=== PATIENT | female | born 1945 | race Caucasian/White ===

== ENCOUNTER 2017-01-17 18:45 | Inpatient (IN) | payer MEDICARE, OTHER ==
[~2017-01-17] VITALS: Ht 147.3 cm; Wt 75.5 kg
[~2017-01-17 18:45] MED LIST: ACYC400T2 PO; BUPR100T15 PO; CALC600T12 PO; CHOL100045 PO; CITA20TA11 PO; ESTR42.52 VG; IBUP800T28 PO; LAMO200T2 PO; LEVO50TA6 PO; MAGN100T5 PO; OMEG100T PO; PRAM0.252 PO; ZIPR40CA24 PO
[2017-01-17 18:57] VITALS: BP 162/81; PULSE 91; RESP 18; O2SAT 94
[2017-01-17] MEDS ORDERED: Ondansetron 2 mg/mL 2 mL Inj IVPUSH ONE (19:25)
[2017-01-17] MEDS ORDERED: 0.9% Sodium Chloride 1,000 ML IV ONE ×2 (19:25→22:35)
[2017-01-17] MEDS ORDERED: Ketorolac 15 mg/mL Inj IVPUSH ONE (19:25)
[2017-01-17 19:31] LABS: BASOPHILS % (AUTO) 0.1 % (0-3); EOSINOPHILS % (AUTO) 1.8 % (0-5); MONOCYTES % (AUTO) 5.6 % (4-12); Mean Corpuscular Volume 95.9 fL (81-100); NEUTROPHILS % (AUTO) 87.2 % (40-74); Platelet Count 205 bil/L (150-400)
--- NOTE | 2017-01-17 19:32 | ED.REPORT ---
HPI-General Illness Date of Service Jan 17, 2017 ED Provider: Elis Lord MD Patient is a 71 year old female who presents to the ED complaining of a fever onset 3 days ago. Associated symptoms include headache, nausea and decreased urination. She denies photophobia, confusion, weakness, numbness, vomiting, rhinorrhea, sore throat, dysuria, urinary frequency or diarrhea. The patient reports that she felt better yesterday but then her symptoms returned this morning. She states that eating doesn't effect her nausea. The patient was seen earlier today at where she was given Tylenol and referred to the ED. She was also seen at [facility] two days ago due to experiencing some vaginal bleeding. At that time she had an ultrasound, which showed that her uterine lining is thickened. Nursing Notes Stated Complaint: SENT FROM FOR TESTING Chief Complaint: General Complaint Nursing Notes Reviewed: Yes Allergies: Coded Allergies: Sulfa (Sulfonamide Antibiotics) (Verified Allergy, Unknown, 03/04/15) Scheduled Acyclovir (Acyclovir) 400 Mg Tablet 400 MG PO BID Cholecalciferol (Vitamin D3) (Vitamin D) 1,000 Unit Capsule 2,000 UNIT PO DAILY Citalopram (Citalopram) 20 Mg Tablet 20 MG PO DAILY Estradiol (Estrace) 42.5 Gm Cream.appl 1 G VG UD Lamotrigine (Lamotrigine) 200 Mg Tablet 200 MG PO DAILY Levothyroxine (Levothyroxine) 50 Mcg Tablet 50 MCG PO DAILY Ziprasidone (Ziprasidone) 40 Mg Capsule 40 MG PO BID Scheduled PRN Ibuprofen (Ibuprofen) 800 Mg Tablet 800 MG PO TID PRN PRN For Pain Miscellaneous Medications Calcium Carbonate (Calcium) 600 Mg Tablet 600 MG PO Magnesium Amino Acid Chelate (Magnesium) 100 Mg Tablet 100 MG PO King[place]-3 Fatty Acids (Kingman-3) 100 Mg Tab.chew 350 MG PO General Time Seen by MD: 19:02 Chief Complaint Fever Hx Obtained From: Patient Arrived By: Walk-in Sudden in Onset?: Yes Onset Occurred: 3 days ago Symptom Duration: Intermittent Location: : Head Quality: Painful Radiation: : Does not radiate Severity: Current: Moderate Recent Healthcare: Recent doctor visit Similar Sx Previous: No Past Medical History Past Medical History bipolar disorder CECILIA restless leg syndrome osteopenia hypothyroidism depression Reports: Hypertension Past Surgical History Reports: Reports: Tubal ligation Smoking History Never Smoker Social History Other Social History: Good social support, Ambulatory Status Independent Review of Systems Full Review of Systems Constitutional: Reports: Fever, Denies: Chills Eyes: Denies: Photophobia Ears / Nose / Throat: Denies: Sore throat Respiratory: Denies: Non-productive cough, Shortness of breath GI: Reports: Nausea, Denies: Diarrhea, Vomiting Female: Reports: Urination decreased, Denies: Dysuria, Urinary frequency Skin: Denies Itching, Denies Rash Allergy / Immune: Denies: Rhinorrhea Neurologic: Reports: Headache, Denies: Numbness, Weakness Complete sys rev & neg: except as marked. Physical Exam Vital Signs Vital Signs Date Time Temp Pulse Resp B/P Pulse Ox O2 Delivery O2 Flow Rate FiO2 01/17/17 18:57 38.2 91 18 162/81 94 Room Air Initial VS: Reviewed General/Constitutional: Awake, Alert Head / Eyes: Atraumatic, Normocephalic, PERRL, EOMI ENT: Atraumatic, Airway patent, Mucous membranes moist Neck: Atraumatic, Supple, Full range of motion Respiratory / Chest: Atraumatic, Breath sounds NL, Breath sounds = bilat, No respiratory distress Cardiovascular: Heart rate NL, Regular rhythm, Heart sounds NL Abdomen: Atraumatic, Soft Tenderness/Guarding/Rebound: Positive: Tender RUQ... (with guarding) Back: Atraumatic, No CVA tenderness Lower Extremity / Pelvis / MS: Atraumatic, No edema Skin: Atraumatic, Color NL, No rash, Warm, Dry Neurologic: Oriented X3, Speech NL, No motor deficits, No sensory deficits, CN II - XII intact Psychiatric: Affect NL, Mood NL Interpretation & Diagnostics Interpretation & Diagnostics: bedside ultrasound: gallbladder wall at 1.5cm, 1 gallstone, positive sonographic James's sign ABDOMEN US: IMPRESSION: Diffuse fatty infiltration throughout the liver. No intrahepatic mass or biliary distention is found. Poor visualization of the pancreatic body and tail due to bowel gas. There is a large calculus mobile within the gallbladder lumen, measuring almost 2 cm in maximal dimension, but the gallbladder wall is not thickened and there is no adjacent pericholecystic fluid, and only mild tenderness is present during sonographic palpation over this calculus. Dictated by: Deni Espitia M.D. on 01/17/2017 at 20:28 Approved by: Deni Espitia M.D. on 01/17/2017 at 20:31 Lab Results Interpretation Result Diagram: 01/17/17 1920 01/18/17 0045 Test 01/17/17 19:20 01/17/17 21:31 01/17/17 22:15 White Blood Count 15.9th/mm3 (3.8-10.1) Red Blood Count 3.88mil/mm3 (3.90-5.20) Hemoglobin 12.4g/dL (12.0-15.6) Hematocrit 37.2% (35.0-46.0) Mean Corpuscular Volume 95.9fL (81-100) Mean Corpuscular Hemoglobin 32.0pg (27.0-35.0) Mean Corpuscular Hemoglobin Concent 33.3% (32.0-37.0) Red Cell Distribution Width 12.4% (12.3-15.4) Platelet Count 205bil/L (150-400) Neutrophils (%) (Auto) 87.2% (40-74) Lymphocytes (%) (Auto) 4.9% (14-46) Monocytes (%) (Auto) 5.6% (4-12) Eosinophils (%) (Auto) 1.8% (0-5) Basophils (%) (Auto) 0.1% (0-3) Lactic Acid Level 0.8mmol/L (0.4-2.0) Urine Color Straw (YELLOW) Urine Appearance Clear (CLEAR,HAZY) Urine pH 7.0 (5.0-8.0) Urine Specific [place] 1.005 (1.003-1.035) Urine Protein Negativemg/dL (NEG,TRACE) Urine Glucose (UA) Negativemg/dL (NEGATIVE) Urine Ketones Negativemg/dL (NEGATIVE) Urine Occult Blood Negative (NEGATIVE) Urine Nitrite Negative (NEGATIVE) Urine Bilirubin Negative (NEGATIVE) Urine Urobilinogen Normalmg/dL (NORMAL) Urine Leukocyte Esterase Negative (NEGATIVE) Urine RBC 0-2/hpf (0-2) Urine WBC 0-5/hpf (0-5) Urine Epithelial Cells None/hpf (NONE-MOD) Urine Crystals None seen (NONE SEEN) Urine Bacteria None/hpf (NONE-FEW) Urine Hyaline Casts None/lpf (NONE) Urine Granular Casts None seen (NONE SEEN) Urine Waxy Casts None seen (NONE SEEN) Urine Red Blood Cell Casts None seen (NONE SEEN) Urine White Blood Cell Casts None seen (NONE SEEN) Urine Mucus None seen (None Seen) Urine Trichomonas None seen (NONE SEEN) Urine Yeast None (NONE SEEN) Urinalysis Comment None Urine Culture Reflexed Not indicated CSF Appearance Clear (CLEAR) CSF Color Colorless (COLORLESS) CSF WBC 1/mm3 (0-5) CSF RBC 1/mm3 CSF Mononuclear WBCs % CSF Polynuclear WBCs % CSF Other Cells CSF Glucose 82mg/dL (45-90) CSF Total Protein 36mg/dL (15-45) X-Ray Chest Interpretation Chest Xray Interpretation: IMPRESSION: Mild bilateral interstitial prominence, mildly reduced inspiratory volume. No definite consolidated focal pneumonia is found but a mild degree of viral pneumonitis could be superimposed. Dictated by: Deni Espitia M.D. on 01/17/2017 at 20:57 Approved by: Deni Espitia M.D. on 01/17/2017 at 20:58 View: Portable, 1 view Interpretation / Wet Read by: Interpret - Radiologist Procedures Lumbar Puncture Text / Dict Note: opening pressure:14 clear CSF Time: 22:04 Procedure Performed by: ED physician Consent / Setup / Site Prep: Informed consent provided, Consent from patient , Time-out performed, Hand hygiene observed, Sterile drapes applied Skin Preparation Agent: Betadine Local Anesthesia: Lidocaine 1% Inserted Needle at: L4 L5 Post-Procedure / Complications: Antibiotic oint applied, Dressing applied, No complications, Tolerated procedure well, Patient stable Re-Eval/Medical Decision Med Decision/Clinical Course 71-year-old female presents to the emergency department with fevers and headache for several days. She does have fever mild increase in her heart rate as well as elevated white blood cell count concerning for service. No source was identified in the emergency department despite chest x-ray, urinalysis, as well as a lumbar puncture that did not reveal concern for meningitis. Patient was given a dose of IV antibiotics that would cover for meningitis given that her only localizing symptom was headache. She is placed in observation status in the hospital for monitoring as well as blood cultures. Initially she complained of nausea without vomiting and had right upper quadrant tenderness, she does have a gallstone but did not have other signs of cholecystitis. She remained well-appearing without hypotension throughout her stay in the emergency department. Time of Eval: 20:57 Re-Evaluation/Progress Note: Discussed ultrasound results, plan for lumbar puncture and admit. Patient understands and agrees to plan. All questions were addressed. Time of Eval: 21:47 Re-Evaluation/Progress Note: Patient reports that her headache has slightly improved. Time of Eval: 23:05 Patient Status: Mild relief Re-Evaluation/Progress Note: Discussed results and plan for admit. Patient agrees and understands plan. 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 I, Dr. Lord personally performed the history, physical exam and medical decision-making; I reviewed and confirmed the accuracy of the information in the transcribed note. Signed by: José Manuel Nielson, 01/17/17 copies to: Oscar Barragan MD, Sarah C MD Jan 17, 2017 19:32 Christine Velázquez Jan 17, 2017 19:38 Dictated by: Deni Espitia M.D. on 01/17/2017 at 20:57 Approved by: Deni Espitia M.D. on 01/17/2017 at 20:58 View: Portable, 1 view Interpretation / Wet Read by: Interpret - Radiologist Procedures Lumbar Puncture Text / Dict Note: opening pressure:14 clear CSF Time: 22:04 Procedure Performed by: ED physician Consent / Setup / Site Prep: Informed consent provided, Consent from patient , Time-out performed, Hand hygiene observed, Sterile drapes applied Skin Preparation Agent: Betadine Local Anesthesia: Lidocaine 1% Inserted Needle at: L4 L5 Post-Procedure / Complications: Antibiotic oint applied, Dressing applied, No complications, Tolerated procedure well, Patient stable Re-Eval/Medical Decision Time of Eval: 20:57 Re-Evaluation/Progress Note: Discussed ultrasound results, plan for lumbar puncture and admit. Patient understands and agrees to plan. All questions were addressed. Time of Eval: 21:47 Re-Evaluation/Progress Note: Patient reports that her headache has slightly improved. Time of Eval: 23:05 Patient Status: Mild relief Re-Evaluation/Progress Note: Discussed results and plan for admit. Patient agrees and understands plan. 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 I, Dr. Lord personally performed the history, physical exam and medical decision-making; I reviewed and confirmed the accuracy of the information in the transcribed note. Signed by: José Manuel Nielson, 01/17/17 copies to: Oscar Barragan MD, Sarah C MD Jan 17, 2017 19:32 Christine Velázquez Jan 17, 2017 19:38
--- NOTE | 2017-01-17 20:33 | DRSVH ---
PROCEDURE: US ABDOMEN ([id number]) INDICATIONS: RUQ pain, TTP, fever TECHNIQUE: Real-time scanning was performed of the abdominal and retroperitoneal organs, with image documentatio n. COMPARISON: None. FINDINGS: Liver: Liver is normal in size and homogeneous in echotexture, diffusely hyperechoic consistent with fatty infiltration. Gallbladder: The gallbladder contains a large mobile stone measuring up to almost 2 cm in diameter, b ut the wall is normal in thickness. There is mild tenderness during sonographic palpation over the g allbladder. Biliary ducts: Intrahepatic bile ducts are non-dilated. Extrahepatic bile duct caliber measures 6.7 mm. Normal is 6-7 mm or less in diameter, or 10 mm or less post-cholecystectomy. Pancreas: Visualized portions of the pancreas are sonographically normal but significant portions of the pancreatic body and tail were not seen due to bowel gas. Spleen: Spleen is normal in size and homogeneous in echotexture. Kidneys: Kidneys are normal in size and echotexture. Right kidney measures 11.7 cm long; left kidne y measures 11.5 cm long. No hydronephrosis or nephrolithiasis. No solid masses. Aorta: Visualized aorta is normal in caliber at less than 3 cm. Iliacs: Proximal common iliac arteries are normal in caliber at less than 2.5 cm. IVC: Intrahepatic inferior vena cava is patent. Miscellaneous: No free abdominal fluid. IMPRESSION: Diffuse fatty infiltration throughout the liver. No intrahepatic mass or biliary distent ion is found. Poor visualization of the pancreatic body and tail due to bowel gas. There is a large calculus mobile within the gallbladder lumen, measuring almost 2 cm in maximal dimen segundo, but the gallbladder wall is not thickened and there is no adjacent pericholecystic fluid, and o nly mild tenderness is present during sonographic palpation over this calculus. Dictated by: Deni Espitia M.D. on 01/17/2017 at 20:28 Approved by: Deni Espitia M.D. on 01/17/2017 at 20:31
--- NOTE | 2017-01-17 20:59 | DRSVH ---
PROCEDURE: X-RAY CHEST ONE VIEW, PORTABLE ([id number]) INDICATIONS: fever TECHNIQUE: One view of the chest was acquired. COMPARISON: [facility], , [facility] CXR MIN 3VW (LT), 10/31/2014, 9:34. FINDINGS: Surgical changes and devices: None. Lungs and pleura: No pleural effusions or pneumothorax. Lungs are stable considering reduced inspir atory volume, with a mild interstitial prominence.. Mediastinum: Mediastinal contours appear normal. Heart size is normal. Bones and chest wall: No suspicious bony lesions. Overlying soft tissues appear unremarkable. IMPRESSION: Mild bilateral interstitial prominence, mildly reduced inspiratory volume. No definite c onsolidated focal pneumonia is found but a mild degree of viral pneumonitis could be superimposed. Dictated by: Deni Espitia M.D. on 01/17/2017 at 20:57 Approved by: Deni Espitia M.D. on 01/17/2017 at 20:58
[2017-01-17 21:36] LABS: APPEARANCE,URINE CLEAR (CLEAR,HAZY); COLOR,URINE STRAW (YELLOW); OCCULT BLOOD,URINE NEGATIVE (NEGATIVE); UROBILINOGEN,URINE NORMAL (NORMAL)
[2017-01-17] MEDS ORDERED: cefTRIAXone Inj 2,000 MG in Dextrose 5% Minibag Plus 50 ML IV ONE (21:40)
[2017-01-17] MEDS ORDERED: Vancomycin Dose per Pharmacist XX ONE (21:40)
[2017-01-17] MEDS ORDERED: Vancomycin Inj 1,250 MG in 0.9% Sodium Chloride 250 ML IV ONE (22:00)
[2017-01-17 22:47] LABS: APPEARANCE,CSF CLEAR (CLEAR); COLOR,CSF COLORLESS (COLORLESS); WHITE BLOOD CELL,CSF 1 /mm3 (0-5)
[2017-01-17] MEDS ORDERED: Alum-Mag Hydrox-Simeth 30 mL Suspension PO PRN (23:35)
[2017-01-17] MEDS ORDERED: Ondansetron 2 mg/mL 2 mL Inj IVPUSH PRN (23:35)
[2017-01-17 23:38] VITALS: BP 137/65; PULSE 76; RESP 18; O2SAT 94
[2017-01-18] VITALS (8 sets, daily range): BP systolic 131–162; BP diastolic 66–83; PULSE 69–78; RESP 16–20; O2SAT 92–95
[2017-01-18] MEDS ORDERED: Ondansetron 2 mg/mL 2 mL Inj IVPUSH PRN (00:20)
[2017-01-18] MEDS ORDERED: Polyethylene Glycol (PEG) 17 Gm Powder PO PRN (00:20)
[2017-01-18] MEDS ORDERED: Alum-Mag Hydrox-Simeth 30 mL Suspension PO PRN (00:20)
[2017-01-18] MEDS: 0.9% Sodium Chloride 1,000 ML IV SCH ×2 (00:51→12:49)
--- NOTE | 2017-01-18 01:00 | PCM.HPMED ---
Subjective Date of Service Jan 18, 2017 Primary Provider: Admitting Physician: Andreia Denis DO Primary Care Physician: Oscar Barragan MD Attending Physician: Andreia Denis DO Chief Complaint: Fever, nausea, malaise, headache History of Present Illness: Patient is a 71-year-old woman with history of depression, anxiety, bipolar, hypothyroidism, anemia, recent evaluation for abnormal uterine bleeding, presents with 1 week of fever measured at 101.5 Fahrenheit at home and moderating between that and 99.5, ongoing nausea without vomiting, headaches, and general weakness today. She denies any dysuria, change in urinary frequency , rashes, constipation or diarrhea, "stomach pain" not abdominal pain, chronic rib pain, no shortness of breath, no odynophagia, cough, changes in vision, limitations, abnormal weight loss or weight gain, exposure to others with similar symptoms, exposure to animals, no recent travel, no ingestion of questionable foods, no neck pain, no photophobia, denies unilateral or focal weakness. Headache she is experiencing is described as being all over, consistent, without throbbing or laterality. Today she said her symptoms were worsening so she went to urgent care, they documented a temperature of 101.7F ( 38.7C), blood pressure 164/90 heart rate 99, was given a dose of Tylenol and told to go to the emergency department. At time of admission she states she is feeling relatively well, but headache persists In the emergency department presenting vitals: 38.2 Celsius, 91, 18, 162/81, 94 % on room air White blood cells 15.9, 87.2% neutrophils, sodium 133, chloride 96, glucose 142 , lactic acid 0.8, liver function normal Urine did not show any signs of infection Lumbar puncture was performed which was unrevealing for infection Chest x-ray and abdominal ultrasound were unrevealing for acute infections. Procalcitonin and herpes simplex serology is pending Based on her elevated temperature, white count, constitutional symptoms of weakness, headache, nausea patient was admitted for infectious illness yet to be identified origin, receiving fluids and empiric/broad spectrum antibiotics. Review of Systems: A comprehensive review of systems was conducted with the patient and found to be negative except as above in the history of presenting illness. Allergies Coded Allergies: Sulfa (Sulfonamide Antibiotics) (Verified Allergy, Unknown, 03/04/15) Home Medications Current Medications Bupropion HCl 100 mg BID PO; Start 01/18/17 at 00:20 Citalopram Hydrobromide 20 mg DAILY PO; Start 01/18/17 at 08:30 Ibuprofen 800 mg TID PRN PO; Start 01/18/17 at 00:20 Levothyroxine Sodium 50 mcg DAILYAC PO; Start 01/18/17 at 07:30 Ziprasidone 40 mg BID PO; Start 01/18/17 at 00:20 Cholecalciferol 2,000 unit DAILY PO; Start 01/18/17 at 08:30 Non-Formulary Medication 1 g UD .ROUTE; Start 01/18/17 at 00:20; Status UNV Lamotrigine 200 mg 200 mg DAILY PO; Start 01/18/17 at 08:30 PMH CECILIA (obstructive sleep apnea) Elevated BP History of basal cell cancer ADHD (attention deficit hyperactivity disorder) Restless leg syndrome Contusion, chest wall Annual physical exam Post-menopausal bleeding Personal history of colonic polyps Osteopenia Bipolar disorder Low back pain Thrush of mouth and esophagus Candidal stomatitis BRBPR (bright red blood per rectum) Hypothyroidism Depression Hyperlipidemia Knee pain, right HTN (hypertension) Bipolar affect, depressed Allergic rhinitis At risk for falls Surgical History Basal cell carcinoma excision in 1991 Appendectomy in 1971 Bilateral tubal ligation in 1982 1975, Mohs surgery of upper lip 1992 Foot surgery Laparoscopic bilateral oopherectomy 2013 Family History Father: Obesity, and alcoholism, colon cancer, Mother: Breast cancer, obesity, CVA, heart disease Sister: Lung cancer, obesity, breast cancer Social History Hx Alcohol Use: Yes (occasionaly) Hx Substance Use: No Hx Tobacco Use: No Smoking Status: Never Smoker Exam Vital Signs Vital Sign - Last Date Time Temp Pulse Resp B/P Pulse Ox O2 Delivery O2 Flow Rate FiO2 01/17/17 23:38 36.9 76 18 137/65 94 Room Air Intake and Output 01/17/17 01/17/17 01/18/17 Cumulative From/Thru 15:00 23:00 07:00 01/17/17 18:57 - 01/18/17 00:39 Intake Total 1000 ml 1000 ml Balance 1000 ml 1000 ml Intake IV Total 1000 ml 1000 ml Exam General: Laying in bed, no apparent distress. HEENT: Normocephalic, atraumatic, EOMI grossly, mucous membranes moist, neck supple without lymphadenopathy, conjunctiva pink Cardiovascular: Regular rate and rhythm, no clicks murmurs rubs, peripheral pulses 2/4 equal bilaterally Pulmonary: Clear to auscultation bilaterally, no W/R/R. Abdominal: Soft to palpation, bowel sounds present 4, no hepatosplenomegaly. Negative rebound. No palpable masses. Extremities: No edema appreciated. No tenderness, asymmetry. Neuro: Neurologically grossly intact, strength is equal bilaterally upper and lower extremities. MSK: Able to move extremities on their own volition, strength 5 out of 5 equal bilaterally to upper and lower extremities. Psychiatric: Patient is alert and oriented 4, appropriate mood and affect. : No suprapubic tenderness, no CVA tenderness Lab and Diagnostics Result Diagram: 01/17/17191901/17/171919 X-Rays, CTs and MRIs Chest x-ray performed 01/17/2017 IMPRESSION: Mild bilateral interstitial prominence, mildly reduced inspiratory volume. No definite consolidated focal pneumonia is found but a mild degree of viral pneumonitis could be superimposed. Dictated by: Deni Espitia M.D. on 01/17/2017 at 20:57 Abdominal ultrasound formed 01/17/2017 IMPRESSION: Diffuse fatty infiltration throughout the liver. No intrahepatic mass or biliary distention is found. Poor visualization of the pancreatic body and tail due to bowel gas. There is a large calculus mobile within the gallbladder lumen, measuring almost 2 cm in maximal dimension, but the gallbladder wall is not thickened and there is no adjacent pericholecystic fluid, and only mild tenderness is present during sonographic palpation over this calculus. Dictated by: Deni Espitia M.D. on 01/17/2017 at 20:28 Assessment & Plan 71-year-old woman with history of bipolar, hypothyroidism, hypertension, recent abnormal uterine bleeding, presents with one-week of fever, headache, and nausea , underwent substantial evaluation for source of illness including chest x-ray abdominal ultrasound, transvaginal ultrasound Gloria Karimi 2 days ago, with source unidentified. She remains febrile, borderline tachycardic, elevated white count, with a headache alternate source unidentified. Admitted for impaired treatment for systemic infection. Acute Fever of unknown origin, meet SIRS criteria, present on admission, active Fever 38.2 Celsius, respiratory rate 22 at urgent care, WBCs 15.9, Abdominal and SYSTEMS INTEGRATOR etiologies were evaluated with ultrasound and lumbar puncture respectively, both were unrevealing. Urinalysis negative for signs of infection CSF herpes serology pending, BioFire PCR ordered Troponin and EKG ordered to evaluate for possible viral myocarditis as a possible foci of her still elusive infection. Hold acetaminophen to allow fever to represented itself during course of antibiotic treatment Empiric and broad-spectrum treatment with vancomycin dosed by pharmacy, ceftriaxone 2 g every 24 hours Blood cultures taken Pro-calcitonin ordered Checking lipase Acute SIRS, present on admission, active As above. Ongoing evaluation to identify source Acute tension headache, present on admission, active Denies auras, scintillating scotomas, throbbing, unilateral pain, felt to be tension headache. Lumbar puncture performed to assess for meningitis -was negative Ibuprofen for pain sparingly, do not want to cover up new fever. Acute ongoing nausea, without vomiting, present on admission, active Zofran 4-8 milligrams IV every 8 hours as needed for nausea and vomiting IV fluids 80 mL per hour. Acute leukocytosis, present on admission Source of infection remains elusive Will continue to monitor with every morning labs Acute hyponatremia, present on admission, active Serum sodium 133 on admission IV fluids normal saline 80 mL per hour Reassess with a.m. labs Acute hypochloremia, present on admission, active Serum chloride 96 on admission IV normal saline 80 mL per hour Reassess with a.m. labs Acute on chronic hypertension, present on admission, active 162/81 on presentation, decreased to 137/65 after receiving medications for pain and fluids. We will continue to monitor and treat if necessary Does not appear to be on any home medications for high blood pressure Elevated blood glucose, chronicity unknown, present on admission, active No diagnosis of diabetes in patient's history, not on hypoglycemics We will reassess a.m. fasting labs Chronic obstructive sleep apnea, present on admission, active Patient sleeps with CPAP, she does not have this with her and so she does not want to disturb her loved ones all their sleeping Instructed to have her family bring in CPAP machine tomorrow. Placed on oxygen nasal cannula, Monitor overnight O2 sat increase oxygen to maintain O2 sat greater than 92%. Chronic cholelithiasis, present on admission, stable Demonstrated on abdominal ultrasound, "almost 2 cm in maximal dimension." No Signs of cholecystitis. Monitor for change in abdominal symptoms suggesting obstructive cholelithiasis/ choledocholithiasis/cholecystitis Chronic bipolar, present on admission, stable Continue home antipsychotics Chronic depression, present on admission, stable Continue home antidepressants Patient admitted to inpatient status with anticipated length of stay greater than 2 midnights, based on ongoing evaluation for diagnosis, plan of treatment, and risk of adverse events. DVT prophylaxis with subcutaneous heparin every 8 hours Pain management with ibuprofen GI prophylaxis not indicated CODE STATUS: Full code. Discussed with patient bedside. Pain Evaluation: Adequate Pain Control GI Prophylaxis: Not indicated VTE Prophylaxis: Sub-Q Heparin (Unfractionated) Resuscitation Status: CPR: Attempt Resuscitation Attending Statement The patient was seen and examined together with house staff on 01/18/2017 and I agree with the history, exam and plan as outlined in the note above. Armin Lambert DO Jan 18, 2017 01:00 Andreia Denis DO Jan 18, 2017 05:40
[2017-01-18] MEDS: lamoTRIgine 100 mg Tablet PO SCH ×2 (01:45→19:50)
--- NOTE | 2017-01-18 02:21 | PCM.CONPHA ---
Subjective Date of Service: Jan 17, 2017 Requesting Provider: Armin Lambert DO Fever, nausea, malaise, headache Reason for Pharmacy Consult: Vancomycin Dosing Objective Vital Signs Date Time Temp Pulse Resp B/P Pulse Ox O2 Delivery O2 Flow Rate FiO2 01/18/17 00:53 37.1 78 20 150/74 94 Room Air 01/17/17 23:38 36.9 76 18 137/65 94 Room Air 01/17/17 18:57 38.2 91 18 162/81 94 Room Air Intake and Output 01/16/17 01/17/17 01/18/17 00:00 00:00 00:00 Intake Total 1000 ml Balance 1000 ml Weight (Kilograms): 75.500 Height (Feet): 4 Height (Inches): 10.00 Test 01/17/17 19:20 01/17/17 21:31 01/17/17 22:15 01/18/17 00:45 White Blood Count 15.9th/mm3 (3.8-10.1) Red Blood Count 3.88mil/mm3 (3.90-5.20) Hemoglobin 12.4g/dL (12.0-15.6) Hematocrit 37.2% (35.0-46.0) Mean Corpuscular Volume 95.9fL (81-100) Mean Corpuscular Hemoglobin 32.0pg (27.0-35.0) Mean Corpuscular Hemoglobin Concent 33.3% (32.0-37.0) Red Cell Distribution Width 12.4% (12.3-15.4) Platelet Count 205bil/L (150-400) Neutrophils (%) (Auto) 87.2% (40-74) Lymphocytes (%) (Auto) 4.9% (14-46) Monocytes (%) (Auto) 5.6% (4-12) Eosinophils (%) (Auto) 1.8% (0-5) Basophils (%) (Auto) 0.1% (0-3) Lactic Acid Level 0.8mmol/L (0.4-2.0) Urine Color Straw (YELLOW) Urine Appearance Clear (CLEAR,HAZY) Urine pH 7.0 (5.0-8.0) Urine Specific [place] 1.005 (1.003-1.035) Urine Protein Negativemg/dL (NEG,TRACE) Urine Glucose (UA) Negativemg/dL (NEGATIVE) Urine Ketones Negativemg/dL (NEGATIVE) Urine Occult Blood Negative (NEGATIVE) Urine Nitrite Negative (NEGATIVE) Urine Bilirubin Negative (NEGATIVE) Urine Urobilinogen Normalmg/dL (NORMAL) Urine Leukocyte Esterase Negative (NEGATIVE) Urine RBC 0-2/hpf (0-2) Urine WBC 0-5/hpf (0-5) Urine Epithelial Cells None/hpf (NONE-MOD) Urine Crystals None seen (NONE SEEN) Urine Bacteria None/hpf (NONE-FEW) Urine Hyaline Casts None/lpf (NONE) Urine Granular Casts None seen (NONE SEEN) Urine Waxy Casts None seen (NONE SEEN) Urine Red Blood Cell Casts None seen (NONE SEEN) Urine White Blood Cell Casts None seen (NONE SEEN) Urine Mucus None seen (None Seen) Urine Trichomonas None seen (NONE SEEN) Urine Yeast None (NONE SEEN) Urinalysis Comment None Urine Culture Reflexed Not indicated CSF Appearance Clear (CLEAR) CSF Color Colorless (COLORLESS) CSF WBC 1/mm3 (0-5) CSF RBC 1/mm3 CSF Mononuclear WBCs % CSF Polynuclear WBCs % CSF Other Cells CSF Glucose 82mg/dL (45-90) CSF Total Protein 36mg/dL (15-45) Sodium Level 141mEq/L (134-144) Potassium Level 3.9mEq/L (3.5-5.2) Chloride Level 106mEq/L (97-108) Carbon Dioxide Level 23mmol/L (18-29) Blood Urea Nitrogen 11mg/dL (8-27) Creatinine 0.61mg/dL (0.57-1.00) Estimat Glomerular Filtration Rate 139mL/min (>59) Glucose Level 116mg/dL (60-99) Calcium Level 8.2mg/dL (8.5-10.1) Total Bilirubin 0.3mg/dL (0.0-1.2) Aspartate Amino Transf (AST/SGOT) 12U/L (0-50) Alanine Aminotransferase (ALT/SGPT) 19U/L (0-32) Alkaline Phosphatase 42U/L (25-165) Troponin T < 0.010ug/L (0.0-0.011) Total Protein 6.4g/dL (6.4-8.4) Albumin 3.5g/dL (3.4-5.0) Procalcitonin 0.29ng/mL (0.00-0.08) Test 01/18/17 01:24 Lipase 11U/L (13-60) Assessment/Plan Assessment/Plan A: * Empiric vancomycin dosing by pharmacy for 71 y/o woman * She was given a 1250 mg IV vancomycin loading dose in the ED * The patient is also being started on ceftriaxone * Estimated CrCl for this patient is 74 mL/min (Cockcroft & Gault using AdjBW) * Estimated vancomycin half-life is 11 hours and estimated volume of distribution is 53 liters P: * Start vancomycin 1000 mg IV every 12 hours * Target a vancomycin trough range of 15 - 20 mcg/mL * Draw a trough level prior to the fourth dose Thank you. Pharmacy will continue to follow this patient. Joceline Kee Jan 18, 2017 02:21
--- NOTE | 2017-01-18 05:27 | NUR ---
NOC/Admit Pt has been pleasant and cooperative with care. Upon arrival pt's vitals are stable and has been afebrile. Denies chest pain, sob, n/v or abd discomfort. Reports of mild headache. Tylenol administered PRN. IVF running 80mls/hr. Telemetry monitoring noted SR 77 without ektopy. Hourly rounding ongoing. Addendum: 01/18/17 at 0534 by CLARE LEDESMA RN O2 running 1.5LPM NC provided for comfort due to CECILIA. CPox provided to monitor O2 saturation as per 's direction. O2 sats has been sustaining >93% the whole night.
[2017-01-18 06:08] LABS: BASOPHILS % (AUTO) 0.3 % (0-3); EOSINOPHILS % (AUTO) 4.6 % (0-5); MONOCYTES % (AUTO) 7.1 % (4-12); Mean Corpuscular Hemoglobin 31.7 pg (27.0-35.0); Mean Corpuscular Volume 97.9 fL (81-100); NEUTROPHILS % (AUTO) 77.6 % (40-74); Platelet Count 174 bil/L (150-400)
[2017-01-18 06:33] LABS: Magnesium 2.3 mg/dL (1.6-2.6)
[2017-01-18] MEDS: Vancomycin Inj 1,000 MG in IV Premix 1 EACH IV SCH ×2 (08:30→19:54)
[2017-01-18] MEDS: Vancomycin Dose per Pharmacist XX SCH (08:32)
--- NOTE | 2017-01-18 12:20 | NUR ---
Case Management: [facility] delivered and explained to patient. Signed original placed in chart. Copy left at bedside. Doreen Paz RN
--- NOTE | 2017-01-18 14:48 | NUR ---
Social Work: Initial Assessment Data: See initial assessment. Patient is a 71 y/o female who was admitted on 01/17/17 for Sepsis per H&P. Patient's insurance is Medicare and [employer] [facility] Supp. PCP is Dr. Oscar Barragan. EMR reviewed. SW met with pt to discuss discharge planning. SW role explained. Patient is alert & oriented x3. Patient resides at home with spouse in a 2 story home where she remains independent with ADLs. Pt states that she uses a CPAP machine. Patient states that DPOA is her spouse [place]. Patient states that her AD are incomplete at this time. Patient has declined AD resources at this time. 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 Patient denies having VA benefits. Patient discussed in morning rounds; no concerns noted for patient's capacity for self care. SW provided a discharge planning checklist booklet to patient and encouraged her to call with any questions. Phone number provided. Patient's spouse will assist with providing transportation home at discharge. SW will continue to follow. Assessment: Home with no needs at this time. Plan: Patient to likely discharge home when medically stable. No anticipated discharge needs. SW will continue to follow. PROSPER Matos Addendum: 01/18/17 at 1505 by CHRISTIANO LOUIE Amended: Links added.
--- NOTE | 2017-01-18 17:36 | NUR ---
BP/IVF Pt asked to stop IVF and states will increase water intake. Has been drinking lots of water throughout shift. Pt with hx of HTN, SBP increasing, notified and OKd to stop NS. Pt encouraged to ambulate as tolerated. made a couple laps around the unit, denied dizzyness/feeling any different.
[2017-01-18] MEDS: cefTRIAXone Inj 2,000 MG in Dextrose 5% Minibag Plus 50 ML IV SCH (21:54)
[2017-01-19] VITALS (8 sets, daily range): BP systolic 144–174; BP diastolic 79–95; PULSE 61–170; RESP 16–18; O2SAT 93–97
[2017-01-19] MEDS: 0.9% Sodium Chloride 1,000 ML IV SCH (01:19)
--- NOTE | 2017-01-19 05:06 | NUR ---
NOC activity pt denies chest pain, sob, n/v or abd discomfort. Reports of headache relieve with tylenol. HS meds administered as ordered. No further complains overnight. Continuing to monitor. Addendum: 01/19/17 at 0551 by CLARE LEDESMA RN 1.5LPM of o2 via NC provided for comfort due to zakia. CPOx has been sustaining high >93%. Hourly rounding.
[2017-01-19 07:18] LABS: BASOPHILS % (AUTO) 0.3 % (0-3); EOSINOPHILS % (AUTO) 6.7 % (0-5); MONOCYTES % (AUTO) 9.8 % (4-12); Mean Corpuscular Hemoglobin 32.2 pg (27.0-35.0); Mean Corpuscular Volume 98.5 fL (81-100); NEUTROPHILS % (AUTO) 64.4 % (40-74); Platelet Count 185 bil/L (150-400)
[2017-01-19] MEDS ORDERED: Vancomycin Serum Trough XX ONE (08:00)
[2017-01-19] MEDS: Vancomycin Dose per Pharmacist XX SCH (08:56)
[2017-01-19] MEDS: Vancomycin Inj 1,000 MG in IV Premix 1 EACH IV SCH (08:56)
[2017-01-19] MEDS: Vancomycin Inj 1,250 MG in 0.9% Sodium Chloride 250 ML IV SCH ×2 (09:17→21:47)
--- NOTE | 2017-01-19 10:42 | NUR ---
HR Call recd from tele notifying of pts HR in 160s. Pt asymptomatic. Was resting in bed. HR up to 170 with ambulation. Manual HR taken by physician, noted to be at 120. STAT Metoprolol given per orders. Pt very anxious. Wants to go home. Continues to be on tele, will continue to monitor. Once HR stabilizes, RN will transport pt to CT for head CT, as per orders from this AM. Addendum: 01/19/17 at 1305 by LYNNE GUADALUPE RN Call recd around 1130 that pt is now SR 70s. updated.
--- NOTE | 2017-01-19 14:33 | DRSVH ---
PROCEDURE: CT BRAIN WITHOUT CONTRAST ([id number]) INDICATIONS: new onset headach TECHNIQUE: Noncontrast 4.5 mm thick angled axial sections acquired from the foramen magnum to the vertex, with c oronal reformats. COMPARISON: None. FINDINGS: Image quality: Excellent. CSF spaces: Basal cisterns are patent. No extra-axial fluid collections. The ventricles are symmet scarlet in size and shape. Brain: No intracranial bleeds or masses. There is cerebral volume loss for age, with resultant vent ricular and sulcal prominence. There are periventricular and deep white matter chronic small vessel ischemic changes. There is intracranial internal carotid artery atherosclerosis. Skull and face: Calvarium and visualized facial bones appear intact, without suspicious lesions. Sinuses: Visualized sinuses and mastoids are clear. IMPRESSION: There is a small degree of microvascular atherosclerotic change in the deep white matter of each hemisphere, but no sign of mass or hemorrhage, or inflammation. Dictated by: Deni Espitia M.D. on 01/19/2017 at 14:32 Approved by: Deni Espitia M.D. on 01/19/2017 at 14:32
--- NOTE | 2017-01-19 18:29 | PCM.PNMED ---
Subjective Date of Service Jan 19, 2017 Subjective Patient was seen and examined at bedside today. Patient denies any chest pain, shortness of breath, nausea, vomiting, diarrhea. The patient states that she is feeling much better and is ready to go home. Overnight events: None Exam Vital Signs Vital Sign - Last Date Time Temp Pulse Resp B/P Pulse Ox O2 Delivery O2 Flow Rate FiO2 01/19/17 16:36 36.6 78 16 162/95 93 Room Air 01/19/17 04:43 1.00 Intake and Output 01/18/17 01/18/17 01/19/17 Cumulative From/Thru 15:00 23:00 07:00 01/17/17 18:57 - 01/19/17 06:46 Intake Total 420 ml 2434 ml 252 ml 4541 ml Output Total 1925 ml 1600 ml 3525 ml Balance -1505 ml 834 ml 252 ml 1016 ml Intake Oral 420 ml 1746 ml 2166 ml IV Total 688 ml 252 ml 2375 ml Output Urine Total 1925 ml 1600 ml 3525 ml # Bowel Movements 0 0 Exam Physical Exam: GEN: Patient was awake, alert, responding appropriately to questions HEENT: Pupils equal round and reactive to light, extraocular eye muscles intact , Neck soft supple, trachea midline, nomocephalic/atraumatic CV: +S1/S2, regular rate and rhythm, no murmurs auscultated Respiratory: CTAB, no wheezes, rales, rhonchi GI: +bowel sounds x4, soft, compressible, nontender to palpation EXT: no clubbing, cyanosis, edema Neuro: Cranial nerves II-XII grossly intact Psych: mood and affect were appropriate IVs and Medications Medications Reviewed: Medications were reviewed in detail Lab and Diagnostics Result Diagram: 01/19/17 0535 01/19/17 0535 X-Rays, CTs and MRIs Chest x-ray performed 01/17/2017 IMPRESSION: Mild bilateral interstitial prominence, mildly reduced inspiratory volume. No definite consolidated focal pneumonia is found but a mild degree of viral pneumonitis could be superimposed. Dictated by: Deni Espitia M.D. on 01/17/2017 at 20:57 Abdominal ultrasound formed 01/17/2017 IMPRESSION: Diffuse fatty infiltration throughout the liver. No intrahepatic mass or biliary distention is found. Poor visualization of the pancreatic body and tail due to bowel gas. There is a large calculus mobile within the gallbladder lumen, measuring almost 2 cm in maximal dimension, but the gallbladder wall is not thickened and there is no adjacent pericholecystic fluid, and only mild tenderness is present during sonographic palpation over this calculus. Dictated by: Deni Espitia M.D. on 01/17/2017 at 20:28 Assessment & Plan 71-year-old woman with history of bipolar, hypothyroidism, hypertension, recent abnormal uterine bleeding, presents with one-week of fever, headache, and nausea , underwent substantial evaluation for source of illness including chest x-ray abdominal ultrasound, transvaginal ultrasound Gloria Trev 2 days ago, with source unidentified. She remains febrile, borderline tachycardic, elevated white count, with a headache alternate source unidentified. Admitted for impaired treatment for systemic infection. Acute Fever of unknown origin, meet SIRS criteria, present on admission, active Fever 38.2 Celsius, respiratory rate 22 at urgent care, WBCs 15.9, Abdominal and COMPENSATION AND HRIS ANALYST etiologies were evaluated with ultrasound and lumbar puncture respectively, both were unrevealing. Urinalysis negative for signs of infection CSF herpes serology pending, BioFire PCR negative Troponin and EKG ordered to evaluate for possible viral myocarditis as a possible foci of her still elusive infection. Hold acetaminophen to allow fever to represented itself during course of antibiotic treatment Empiric and broad-spectrum treatment with vancomycin dosed by pharmacy, ceftriaxone 2 g every 24 hours Blood cultures taken Pro-calcitonin ordered lipase unremarkable Acute SIRS, present on admission, active As above. Ongoing evaluation to identify source Acute tension headache, present on admission, active Denies auras, scintillating scotomas, throbbing, unilateral pain, felt to be tension headache. Lumbar puncture performed to assess for meningitis -was negative Ibuprofen for pain sparingly, do not want to cover up new fever. CT scan of the head shows no intracranial hemorrhaging or masses however does show some microvascular atherosclerotic changes Acute ongoing nausea, without vomiting, present on admission, active Zofran 4-8 milligrams IV every 8 hours as needed for nausea and vomiting IV fluids 80 mL per hour. Acute leukocytosis, present on admission Source of infection remains elusive Will continue to monitor with every morning labs Acute hyponatremia, present on admission, resolved Serum sodium 133 on admission currently 144 IV fluids normal saline 80 mL per hour Reassess with a.m. labs Acute hypochloremia, present on admission, active Serum chloride 96 on admission IV normal saline 80 mL per hour Reassess with a.m. labs Acute on chronic hypertension, present on admission, active 162/81 on presentation, decreased to 137/65 after receiving medications for pain and fluids. We will continue to monitor and treat if necessary Does not appear to be on any home medications for high blood pressure Elevated blood glucose, chronicity unknown, present on admission, active No diagnosis of diabetes in patient's history, not on hypoglycemics Glucose normal with a.m. labs Chronic obstructive sleep apnea, present on admission, active Patient sleeps with CPAP, she does not have this with her and so she does not want to disturb her loved ones all their sleeping Patient still does not have her CPAP machine Placed on oxygen nasal cannula, Monitor overnight O2 sat increase oxygen to maintain O2 sat greater than 92%. Chronic cholelithiasis, present on admission, stable Demonstrated on abdominal ultrasound, "almost 2 cm in maximal dimension." No Signs of cholecystitis. Monitor for change in abdominal symptoms suggesting obstructive cholelithiasis/ choledocholithiasis/cholecystitis Chronic bipolar, present on admission, stable Continue home antipsychotics Chronic depression, present on admission, stable Continue home antidepressants DVT prophylaxis with subcutaneous heparin every 8 hours Pain management with ibuprofen GI prophylaxis not indicated CODE STATUS: Full code. Discussed with patient bedside. Disposition: Patient still has some unexplained reasons for her leukocytosis however was stable and was ready to be discharged home. However the patient had a bout of A. fib with heart rate up into the 180s. The patient was given 25 mg of metoprolol and converted back into normal sinus rhythm. We will continue metoprolol 25 mg twice a day at this time and if the patient remains in normal sinus rhythm she will be able to be discharged home tomorrow with follow-up with her PCP and cardiology. GI Prophylaxis: Not indicated VTE Prophylaxis: Sub-Q Heparin (Unfractionated) VTE Mechanical Devices: Venous Foot Pump Resuscitation Status: CPR: Attempt Resuscitation Shelley Sam DO Jan 19, 2017 18:29
[2017-01-19] MEDS: lamoTRIgine 100 mg Tablet PO SCH (21:46)
[2017-01-19] MEDS ORDERED: 0.9% Sodium Chloride 250 ML ONE (21:49)
[2017-01-19] MEDS: cefTRIAXone Inj 2,000 MG in Dextrose 5% Minibag Plus 50 ML IV SCH ×2 (22:47→23:27)
[2017-01-20 01:04] VITALS: BP 170/80; PULSE 65; RESP 16; O2SAT 92
[2017-01-20 05:34] VITALS: BP 156/81; PULSE 68; RESP 16; O2SAT 97
[2017-01-20 05:40] VITALS: PULSE 68
[2017-01-20 07:26] LABS: BASOPHILS % (AUTO) 0.3 % (0-3); EOSINOPHILS % (AUTO) 7.8 % (0-5); Mean Corpuscular Volume 96.1 fL (81-100); Platelet Count 264 bil/L (150-400)
[2017-01-20] MEDS: Vancomycin Inj 1,250 MG in 0.9% Sodium Chloride 250 ML IV SCH (07:57)
[2017-01-20] MEDS ORDERED: METO25TA6 PO (08:20)
--- NOTE | 2017-01-20 08:26 | PCM.DIMED ---
Discharge Instructions Date of Service Jan 20, 2017 Dates of Hospitalization Jan 17, 2017 at 23:33 Discharge Diagnosis Discharge Diagnosis New Onset atrial fibrillation converted to normal sinus rhythm Viral infection meeting SIRS criteria Tension headache Depression Cholelithiasis chronic Obstructive sleep apnea Hypertension Diet Discharge Diet: Heart Healthy Activity Discharge Activity: No restrictions Call your provider Call your provider for: Fever or Chills, Chest pain, Weakness (unilateral) Patient Instructions Follow-up plan Please follow up with your primary care physician and with cardiology. If you start to feel the palpitations in your chest please do not ignore them but contact your doctor immediately Follow-up Provider: Oscar Barragan MD Follow-up with PCP in: 1 week (If an appointment has not been made please call to schedule an appointment) Follow-up in: 4 weeks (Please follow up with cardiology in the next 2-4 weeks) Shelley Sam DO Jan 20, 2017 08:26
[2017-01-20 08:27] VITALS: BP 152/70; PULSE 60; RESP 16; O2SAT 94
[2017-01-20] MEDS: Vancomycin Dose per Pharmacist XX SCH (08:30)
--- NOTE | 2017-01-20 08:46 | NUR ---
Social Work: Readiness For Discharge Data: EMR reviewed. Patient is on day 3 of hospitalization for Sepsis per H&P. Patient has been deemed medically stable for discharge today per MD. Patient will discharge home with no needs. Transportation will be provided by patient's spouse Bony Velasco. Assessment: Patient to discharge home with no needs. Plan: Patient to discharge home with spouse today. Transportation will be provided by patient spouse Bony Velasco. Patient has no additional needs at this time. PROSPER Matos
--- NOTE | 2017-01-20 09:44 | PCM.DC.MED ---
Discharge Summary Date of Service Jan 20, 2017 Dates of Hospitalization Date of Hospital Admission Jan 17, 2017 at 23:33 Date of Discharge: Jan 20, 2017 Providers: Admitting Physician: Andreia Denis DO Primary Care Physician: Oscar Barragan MD Attending Physician: Shelley Sam DO Diagnosis at Time of Discharge Diagnosis at Time of Discharge New Onset atrial fibrillation converted to normal sinus rhythm Viral infection meeting SIRS criteria Tension headache Depression Cholelithiasis chronic Obstructive sleep apnea Hypertension Procedures XRay, CTs & MRIs Chest x-ray performed 01/17/2017 IMPRESSION: Mild bilateral interstitial prominence, mildly reduced inspiratory volume. No definite consolidated focal pneumonia is found but a mild degree of viral pneumonitis could be superimposed. Dictated by: Deni Espitia M.D. on 01/17/2017 at 20:57 Abdominal ultrasound formed 01/17/2017 IMPRESSION: Diffuse fatty infiltration throughout the liver. No intrahepatic mass or biliary distention is found. Poor visualization of the pancreatic body and tail due to bowel gas. There is a large calculus mobile within the gallbladder lumen, measuring almost 2 cm in maximal dimension, but the gallbladder wall is not thickened and there is no adjacent pericholecystic fluid, and only mild tenderness is present during sonographic palpation over this calculus. Dictated by: Deni Espitia M.D. on 01/17/2017 at 20:28 Brief History Patient is a 71-year-old woman with history of depression, anxiety, bipolar, hypothyroidism, anemia, recent evaluation for abnormal uterine bleeding, presents with 1 week of fever measured at 101.5 Fahrenheit at home and moderating between that and 99.5, ongoing nausea without vomiting, headaches, and general weakness today. The patient was admitted having met SIRS criteria and was immediately started on IV antibiotics. Patient was started on IV vancomycin and ceftriaxone for broad spectrum coverage. The patient had a lumbar puncture done which was negative, and also had blood cultures which showed no growth after 2 days. Patient also had a urine culture which showed mixed urogenital kristin suggesting contamination and also had a viral PCR which was negative. It seems that the patient's cervix was secondary to a viral infection and the patient seems to be recovering and has been trending white blood cell count and procalcitonin. The patient was scheduled to be discharged yesterday however she went into A. fib with RVR. After further history from the patient she states that she gets palpitations regularly but generally ignores them and they go away. The patient 's heart rate was as high as the 180s and seemed to respond well to metoprolol 25 mg by mouth twice a day. The patient was discharged back in sinus rhythm and heart rates in the 80s. The patient has been encouraged to follow-up with her primary care physician as well as cardiology for further workup and management of her new acute onset of A. fib. The patient did have some concerns that her severe headache was new and she has never had this previously so a CT scan of the head was done showing some microcalcifications however no signs of intracranial bleeding or lesions. The patient was discharged home in stable condition. Hospital Course 71-year-old woman with history of bipolar, hypothyroidism, hypertension, recent abnormal uterine bleeding, presents with one-week of fever, headache, and nausea , underwent substantial evaluation for source of illness including chest x-ray abdominal ultrasound, transvaginal ultrasound Gloria Karimi 2 days ago, with source unidentified. She remains febrile, borderline tachycardic, elevated white count, with a headache alternate source unidentified. Admitted for impaired treatment for systemic infection. Acute Fever of unknown origin, meet SIRS criteria, present on admission, active Fever 38.2 Celsius, respiratory rate 22 at urgent care, WBCs 15.9, Abdominal and SECURITIES TRADER etiologies were evaluated with ultrasound and lumbar puncture respectively, both were unrevealing. Urinalysis negative for signs of infection CSF herpes serology pending, BioFire PCR negative Troponin and EKG ordered to evaluate for possible viral myocarditis as a possible foci of her still elusive infection. Hold acetaminophen to allow fever to represented itself during course of antibiotic treatment Empiric and broad-spectrum treatment with vancomycin dosed by pharmacy, ceftriaxone 2 g every 24 hours Blood cultures taken Pro-calcitonin trending down it was as high as 0.31 currently 0.16 lipase unremarkable Acute SIRS, present on admission, active As above. Ongoing evaluation to identify source Acute tension headache, present on admission, active Denies auras, scintillating scotomas, throbbing, unilateral pain, felt to be tension headache. Lumbar puncture performed to assess for meningitis -was negative Ibuprofen for pain sparingly, do not want to cover up new fever. CT scan of the head shows no intracranial hemorrhaging or masses however does show some microvascular atherosclerotic changes Acute ongoing nausea, without vomiting, present on admission, active Zofran 4-8 milligrams IV every 8 hours as needed for nausea and vomiting IV fluids 80 mL per hour. Acute leukocytosis, present on admission Source of infection remains elusive Lipids account trending down and now within normal limits Acute hyponatremia, present on admission, resolved Serum sodium 133 on admission currently 144 IV fluids normal saline 80 mL per hour Acute hypochloremia, present on admission, active Serum chloride 96 on admission IV normal saline 80 mL per hour Acute on chronic hypertension, present on admission, active 162/81 on presentation, decreased to 137/65 after receiving medications for pain and fluids. Does not appear to be on any home medications for high blood pressure we will continue to treat currently with metoprolol as this seems to be managing her blood pressure Elevated blood glucose, chronicity unknown, present on admission, active No diagnosis of diabetes in patient's history, not on hypoglycemics Glucose was found to be normal normal with a.m. labs Chronic obstructive sleep apnea, present on admission, active Patient sleeps with CPAP, she does not have this with her and so she does not want to disturb her loved ones all their sleeping Patient still does not have her CPAP machine Placed on oxygen nasal cannula, Monitor overnight O2 sat increase oxygen to maintain O2 sat greater than 92%. Chronic cholelithiasis, present on admission, stable Demonstrated on abdominal ultrasound, "almost 2 cm in maximal dimension." No Signs of cholecystitis. Monitor for change in abdominal symptoms suggesting obstructive cholelithiasis/ choledocholithiasis/cholecystitis Chronic bipolar, present on admission, stable Continue home antipsychotics Chronic depression, present on admission, stable Continue home antidepressants Exam Vital Signs (Last) Date Time Temp Pulse Resp B/P Pulse Ox O2 Delivery O2 Flow Rate FiO2 01/20/17 08:27 36.7 60 16 152/70 94 Room Air 01/19/17 04:43 1.00 Exam Physical Exam: GEN: Patient was awake, alert, responding appropriately to questions HEENT: Pupils equal round and reactive to light, extraocular eye muscles intact , Neck soft supple, trachea midline, nomocephalic/atraumatic CV: +S1/S2, regular rate and rhythm, no murmurs auscultated Respiratory: CTAB, no wheezes, rales, rhonchi GI: +bowel sounds x4, soft, compressible, nontender to palpation EXT: no clubbing, cyanosis, edema Neuro: Cranial nerves II-XII grossly intact Psych: mood and affect were appropriate Test 01/17/17 21:31 01/17/17 22:15 01/18/17 00:45 01/18/17 01:24 Urine Color Straw (YELLOW) Urine Appearance Clear (CLEAR,HAZY) Urine pH 7.0 (5.0-8.0) Urine Specific [place] 1.005 (1.003-1.035) Urine Protein Negativemg/dL (NEG,TRACE) Urine Glucose (UA) Negativemg/dL (NEGATIVE) Urine Ketones Negativemg/dL (NEGATIVE) Urine Occult Blood Negative (NEGATIVE) Urine Nitrite Negative (NEGATIVE) Urine Bilirubin Negative (NEGATIVE) Urine Urobilinogen Normalmg/dL (NORMAL) Urine Leukocyte Esterase Negative (NEGATIVE) Urine RBC 0-2/hpf (0-2) Urine WBC 0-5/hpf (0-5) Urine Epithelial Cells None/hpf (NONE-MOD) Urine Crystals None seen (NONE SEEN) Urine Bacteria None/hpf (NONE-FEW) Urine Hyaline Casts None/lpf (NONE) Urine Granular Casts None seen (NONE SEEN) Urine Waxy Casts None seen (NONE SEEN) Urine Red Blood Cell Casts None seen (NONE SEEN) Urine White Blood Cell Casts None seen (NONE SEEN) Urine Mucus None seen (None Seen) Urine Trichomonas None seen (NONE SEEN) Urine Yeast None (NONE SEEN) Urinalysis Comment None Urine Culture Reflexed Not indicated CSF Appearance Clear (CLEAR) CSF Color Colorless (COLORLESS) CSF WBC 1/mm3 (0-5) CSF RBC 1/mm3 CSF Mononuclear WBCs % CSF Polynuclear WBCs % CSF Other Cells CSF Glucose 82mg/dL (45-90) CSF Total Protein 36mg/dL (15-45) Troponin T < 0.010ug/L (0.0-0.011) Lipase 11U/L (13-60) Test 01/18/17 05:30 01/19/17 05:37 01/19/17 06:52 01/20/17 06:50 Magnesium Level 2.3mg/dL (1.6-2.6) Vancomycin Level Trough 11.1mcg/mL Lactic Acid Level 0.6mmol/L (0.4-2.0) White Blood Count 6.7th/mm3 (3.8-10.1) Red Blood Count 3.59mil/mm3 (3.90-5.20) Hemoglobin 11.5g/dL (12.0-15.6) Hematocrit 34.5% (35.0-46.0) Mean Corpuscular Volume 96.1fL (81-100) Mean Corpuscular Hemoglobin 32.0pg (27.0-35.0) Mean Corpuscular Hemoglobin Concent 33.3% (32.0-37.0) Red Cell Distribution Width 12.5% (12.3-15.4) Platelet Count 264bil/L (150-400) Neutrophils (%) (Auto) 55.0% (40-74) Lymphocytes (%) (Auto) 27.8% (14-46) Monocytes (%) (Auto) 9.0% (4-12) Eosinophils (%) (Auto) 7.8% (0-5) Basophils (%) (Auto) 0.3% (0-3) Sodium Level 144mEq/L (134-144) Potassium Level 4.4mEq/L (3.5-5.2) Chloride Level 105mEq/L (97-108) Carbon Dioxide Level 24mmol/L (18-29) Blood Urea Nitrogen 12mg/dL (8-27) Creatinine 0.74mg/dL (0.57-1.00) Estimat Glomerular Filtration Rate 111mL/min (>59) Glucose Level 100mg/dL (60-99) Calcium Level 9.2mg/dL (8.5-10.1) Total Bilirubin 0.2mg/dL (0.0-1.2) Aspartate Amino Transf (AST/SGOT) 53U/L (0-50) Alanine Aminotransferase (ALT/SGPT) 117U/L (0-32) Alkaline Phosphatase 89U/L (25-165) Total Protein 6.8g/dL (6.4-8.4) Albumin 4.1g/dL (3.4-5.0) Procalcitonin 0.16ng/mL (0.00-0.08) Discharge Medications Discharge Medications Acyclovir (Acyclovir) 400 Mg Tablet 400 MG PO BID (Reported) Cholecalciferol (Vitamin D3) (Vitamin D) 1,000 Unit Capsule 2,000 UNIT PO DAILY (Reported) Citalopram (Citalopram) 20 Mg Tablet 20 MG PO DAILY (Reported) Estradiol (Estrace) 42.5 Gm Cream.appl 1 G VG UD (Reported) Lamotrigine (Lamotrigine) 200 Mg Tablet 200 MG PO DAILY (Reported) Levothyroxine (Levothyroxine) 50 Mcg Tablet 50 MCG PO DAILY (Reported) Metoprolol Tartrate (Metoprolol Tartrate) 25 Mg Tablet 25 MG PO BID Prescribed by: SHELLEY SAM DO Ziprasidone (Ziprasidone) 40 Mg Capsule 40 MG PO HS (Reported) As needed Ibuprofen (Ibuprofen) 800 Mg Tablet 800 MG PO TID PRN PRN For Pain (Reported) Miscellaneous Medications Calcium Carbonate (Calcium) 600 Mg Tablet 600 MG PO (Reported) Magnesium Amino Acid Chelate (Magnesium) 100 Mg Tablet 100 MG PO (Reported) [place]-3 Fatty Acids ([place]-3) 100 Mg Tab.chew 350 MG PO (Reported) Followup Plan Follow-up plan Please follow up with your primary care physician and with cardiology. If you start to feel the palpitations in your chest please do not ignore them but contact your doctor immediately Discharge Diet: Heart Healthy Discharge Activity: No restrictions Follow-up Provider: Oscar Barragan MD Follow-up with PCP in: 1 week (If an appointment has not been made please call to schedule an appointment) Follow-up in: 4 weeks (Please follow up with cardiology in the next 2-4 weeks) Time spent Greater than 35 minutes copies to: Oscar Barragan MD, Precious L DO Jan 20, 2017 09:44
[2017-01-20 10:18] VITALS: PULSE 60
--- NOTE | 2017-01-20 10:54 | NUR ---
Discharge D/C to home with . D/C packet with instructions, RX, f/u info, and care notes discussed and provided. Comfortable with plan of care at this time. Escorted by RN to desktop administrator and requested to ambulate off floor. Left with all belongings in no sign of distress.
== END 2017-01-20 10:45 | disposition home or self-care (01) | DRG 866 ==
LOC: SED 18:45 → MPC 23:33 → OBSVTOIN 23:33
PROVIDERS: ADMIT Internal Medicine; ATTEND Internal Medicine
PROC: 009U3ZX Drainage of Spinal Canal, Percutaneous Approach, Diagnostic (ICD-10-PCS; principal; 2017-01-17)
DX: B34.9 Viral infection, unspecified (principal); E87.1 Hypo-osmolality and hyponatremia; R50.9 Fever, unspecified; R51 Headache; I48.91 Unspecified atrial fibrillation; G47.33 Obstructive sleep apnea (adult) (pediatric); I10 Essential (primary) hypertension; E03.9 Hypothyroidism, unspecified; F31.9 Bipolar disorder, unspecified; K80.20 Calculus of gallbladder without cholecystitis without obstruction